=== PATIENT | female | born 1945 | race Caucasian/White ===

== ENCOUNTER 2016-09-24 10:35 | Emergency (ER) | payer OTHER ==
[2016-09-24 10:42] VITALS: BP 135/90; TEMP 98.6; BMI 30.9
[2016-09-24] MEDS ORDERED: AUGMENTIN 875-125 MG TAB PO STA (11:09)
[2016-09-24] MEDS ORDERED: BOOSTRIX IM ONE (11:09)
[2016-09-24] MEDS ORDERED: LIDOCAINE 1 % AMP 5 ML (SUTURES) SUBCUT STA (11:14)
--- NOTE | 2016-09-24 11:23 | ED.PDOC ---
General ED Provider: Dr. SAM REEDER JR Chief Complaint: Laceration Stated Complaint: LACERATION TO RIGHT LOWER LEG. FELL ON CONCRETE.[ End ]15 min ago 98.6 92 16 97% 135/90 5/10 RIGHT LOWER LEG LACERATION[End]UNSURE WHAT CAUSED FALL. WAS TRIMMING BUSHES. NO LOC. DID NOT HIT HEAD. THINKS LEG LANDED O N CONCRETE. CAUGHT SELF WITH HANDS. NO OTHER C/O PAIN OR INJURY.[ End ]7 x 1.5 Time Seen by Physician: 11:17 Mode of Arrival: Walk-In Information Source: Patient, Family Exam Limitations: No limitations Primary Care Provider: JAREK LOW Nursing and Triage Documentation Reviewed and Agree: No Review of Systems - Review Of Systems Constitutional: Reports: No symptoms Eyes: Reports: No symptoms Ears, Nose, Mouth, Throat: Reports: No symptoms Respiratory: Reports: No symptoms Cardiac: Reports: No symptoms GI: Reports: No symptoms : Reports: No symptoms Musculoskeletal: Reports: No symptoms Skin: Reports: Lesions Neurological: Reports: No symptoms Endocrine: Reports: No symptoms Hematologic/Lymphatic: Reports: No symptoms All Other Systems: Other Past Medical History - Past Medical History Endocrine: Reports: Dyslipidemia Cardiovascular: Reports: Hypertension Respiratory: Reports: None Hematological: Reports: None Gastrointestinal: Reports: None Genitourinary: Reports: None Neuro/Psych: Reports: None Musculoskeletal: Reports: None Cancer: Reports: None Last Menstrual Period: NA Other Pertinent Past Medical History: HYST, FOOT SURGERY, GB htn chol - Surgical History General Surgical History: Reports: Hysterectomy, Cholecystectomy, Orthopedic ( FOOT SURGERY) - Family History Family History: Reports: Unknown - Social History Smoking Status: Never smoker Hx Substance Use: No Alcohol Screening: None - Immunizations Tetanus Shot up to Date: No Physical Exam - Physical Exam Appearance: Well-appearing Pain Distress: Mild Neck: Supple Respiratory: Airway patent Musculoskeletal: Normal strength, ROM intact, No edema, No calf tenderness Skin: Warm, Dry, Normal color (note lesion) Neurological: Sensation intact, Motor intact (no weakness foot ankle lower leg) , Reflexes intact, Cranial nerves intact, Alert, Oriented Psychiatric: Affect appropriate, Mood appropriate Procedures - Laceration/Wound Repair No standard instances Wound Description: Flap Wound Length (cm): 8 Wound Width: 1 Wound Depth: 1 Wound Explored: Clean Wound Irrigated: Yes Wound Prep: Saline, Hibiclens Anesthesia: Lidocaine (10cc) Wound Debrided: Moderate Undermining: Minimal Wound Repaired With: Sutures Suture Size and Type: 4-0 nylon Number of Sutures: 13 (excellent approximation loose adipose debrided without oozing) Layer Closure?: No Sterile Dressing Applied?: Yes Critical Care Note - Critical Care Note Total Time (mins): 0 Course - Course Orders, Labs, Meds: Orders Category Date Time Status Amoxicillin/Potassium Clav [Augmentin 875-125 mg Tab] MEDS 09/24/16 11:09 Discontinued 1 tab PO ONCE STA Diphth,Pertuss(Acell),Tet Vac [Boostrix] MEDS 09/24/16 11:09 Discontinued 0.5 ml IM .ONCE ONE Lidocaine HCl/Pf [Lidocaine 1 % Amp 5 ml (Sutures)] MEDS 09/24/16 11:14 Discontinued 10 ml SUBCUT ONCE STA Medications Discontinued Medications Generic Name Dose Route Start Last Admin Trade Name Freq PRN Reason Stop Dose Admin Amoxicillin/Clavulanate Potassium 1 tab 09/24/16 11:09 09/24/16 11:15 Augmentin 875-125 Mg Tab PO 09/24/16 11:10 1 tab ONCE STA Administration Diphtheria/Pertussis/Tetanus Vacc 0.5 ml 09/24/16 11:09 09/24/16 11:16 Boostrix IM 09/24/16 11:10 0.5 ml .ONCE ONE Administration Lidocaine HCl 10 ml 09/24/16 11:14 09/24/16 11:21 Lidocaine 1 % Amp 5 Ml (Sutures) SUBCUT 09/24/16 11:15 10 ml ONCE STA Administration Vital Signs: Temp Pulse Resp BP Pulse Ox 09/24/16 10:38 98.6 F 92 H 16 135/90 97 Departure - Departure Time of Disposition: 12:28 Disposition: HOME SELF-CARE Discharge Problem: Laceration - injury Instructions: Laceration (ED), Care For Your Stitches (ED) Condition: Good Pt referred to PMD for follow-up: Yes Additional Instructions: clean and dry for three days antibiotic for one week recheck if redness swelling increased pain elevate leg for two hours twice a day leigh wrap for comfort to reduce bruising and to reduce swelling recheck sutures in three days change bandage daily and if bleed through return if soaks three bandages Prescriptions: Amoxicillin/Potassium Clav [Augmentin 875-125 mg Tab] 1 tab PO BIDWM #14 tablet Tramadol HCl [Ultram] 50 mg PO Q6H PRN #14 tablet PRN Reason: PAIN Allergies/Adverse Reactions: Allergies No Known Allergies Allergy (Unverified 09/24/16 10:37) Home Medications: Ambulatory Orders Amoxicillin/Potassium Clav [Augmentin 875-125 mg Tab] 1 tab PO BIDWM #14 tablet 09/24/16 Tramadol HCl [Ultram] 50 mg PO Q6H PRN #14 tablet 09/24/16
== END 2016-09-24 12:35 | disposition home or self-care (01) ==
LOC: ED 10:35
DX: S81.811A Laceration without foreign body, right lower leg, initial encounter (principal); W18.30XA Fall on same level, unspecified, initial encounter; Y93.H2 Activity, gardening and landscaping
CPT/HCPCS: 90471; 99283

== ENCOUNTER 2017-07-03 09:05 | Outpatient (CLI) ==
--- NOTE | 2017-07-03 09:50 | DI ---
EXAM: Two views of the chest. History: Cough. Findings: Heart size is normal. Mild bibasilar infiltrates. No pleural fluid and no pneumothorax. No acute osseous abnormalities. Cholecystectomy clips. No acute osseous abnormalities. Impression: Mild bibasilar lung infiltrates.
== END 2017-07-03 09:06 | disposition home or self-care (01) ==
LOC: RAD 09:05
PROVIDERS: ATTEND Family Medicine
DX: J40 Bronchitis, not specified as acute or chronic (principal)

== ENCOUNTER 2017-07-06 09:22 | Outpatient (CLI) ==
--- NOTE | 2017-07-06 09:55 | DI ---
EXAM: CHEST FRONTAL AND LATERAL VIEWS HISTORY: Cough. COMPARISON: 07/03/2017 FINDINGS: Heart size and mediastinal contour remain within normal limits. No acute infiltrates. Normal vascularity with no pleural fluid or pneumothorax. The bony thorax has no acute finding. IMPRESSION: No acute process.
== END 2017-07-06 09:23 | disposition home or self-care (01) ==
LOC: RAD 09:22
PROVIDERS: ATTEND Family Medicine
DX: R05 Cough (principal)

== ENCOUNTER 2017-07-29 07:42 | Outpatient (CLI) | payer OTHER | END 2017-07-29 07:43 | disposition home or self-care (01) | LOC: LAB 07:42 | PROVIDERS: ATTEND Internal Medicine Endocrinology, Diabetes & Metabolism | DX: E83.52 Hypercalcemia (principal); E21.3 Hyperparathyroidism, unspecified; E55.9 Vitamin D deficiency, unspecified | CPT/HCPCS: 36415; 80053; 82652; 84446 ==

== ENCOUNTER 2017-12-07 15:11 | Outpatient (CLI) ==
--- NOTE | 2017-12-08 07:49 | DI ---
EXAM: Chest two view, frontal and lateral views. HISTORY: Bronchitis. COMPARISON: 07/06/2017, 07/03/2017. FINDINGS: The heart size is normal. There is no pulmonary vascular congestion. The lungs are clear . No pleural effusion or pneumothorax is seen. No acute osseous abnormality identified. Multiple c lips seen in the upper abdomen. Since the prior study, there has been no significant interval change. IMPRESSION: No acute cardiopulmonary process.
== END 2017-12-07 15:12 | disposition home or self-care (01) ==
LOC: RAD 15:11
PROVIDERS: ATTEND Family Medicine
DX: J40 Bronchitis, not specified as acute or chronic (principal)